=== PATIENT | male | born 1965 | race Caucasian/White ===

== ENCOUNTER 2017-03-10 22:44 | Emergency (ER) | payer SELFPAY ==
[~2017-03-10] VITALS: Ht 167.6 cm; Wt 62.0 kg
[~2017-03-10 22:44] MED LIST: IBUP600T26 PO; MOBI15TA PO
[2017-03-10 22:49] VITALS: BP 127/74; PULSE 60; RESP 20; TEMP 98.3
[2017-03-10] MEDS ORDERED: MORPHINE SULFATE 8 MG/ML INJ IM ONE (23:00)
[2017-03-10] MEDS ORDERED: ONDANSETRON ODT 4 MG TAB PO ONE (23:00)
[2017-03-10] MEDS ORDERED: TETANUS/DIPHTHERIA TOXOID ADULT 0.5 ML VIAL IM ONE (23:00)
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
[2017-03-11] MEDS ORDERED: IBUP800T23 PO (00:10)
[2017-03-11] MEDS ORDERED: CYCL1TAB29 PO (00:10)
== END 2017-03-11 04:06 | disposition home or self-care (01) ==
LOC: NEPC 22:44
DX: S01.81XA Laceration without foreign body of other part of head, initial encounter (principal); S09.90XA Unspecified injury of head, initial encounter; S16.1XXA Strain of muscle, fascia and tendon at neck level, initial encounter; I10 Essential (primary) hypertension; F17.210 Nicotine dependence, cigarettes, uncomplicated; W22.8XXA Striking against or struck by other objects, initial encounter; Z23 Encounter for immunization
CPT/HCPCS: 12011; 70450; 72125; 90471; 90714; 96372; 99285; J2270